=== PATIENT | male | born 1945 | race Caucasian/White ===

== ENCOUNTER → 2019-09-14 | Outpatient (CLI) | payer MEDICARE ==
[~2019-09-14] MED LIST: AEC81 PO; AMLO1CAP6 PO; GLUC1CAP36 PO; HYDR12.54 PO; LEVO75TA4 PO; MULT-1258 PO; OMEGA 3 PO
== END | disposition home or self-care (01) ==
LOC: SHCH 12:30
PROVIDERS: ATTEND Internal Medicine Cardiovascular Disease
DX: I49.5 Sick sinus syndrome (principal); R55 Syncope and collapse
CPT/HCPCS: 93306; 93356

== ENCOUNTER 2019-10-07 05:51 | Day surgery (SDC) | payer MEDICARE ==
[2019-10-05 09:37] LABS: BASOPHILS % (AUTO) 0.5 % (0.0-5.0); EOSINOPHILS % (AUTO) 2.3 % (0.0-8.0); HEMATOCRIT 43.4 % (42-54); LYMPHOCYTES % (AUTO) 31.9 % (21.0-51.0); MEAN CORPUSCULAR HGB CONC 33.4 g/dL (32.0-36.0); MEAN CORPUSCULAR VOLUME 92.9 fL (79-99); MONOCYTES % (AUTO) 10.4 % (3.0-13.0); NEUTROPHILS % (AUTO) 54.6 % (40.0-77.0); PLATELET COUNT (AUTO) 275 K/uL (130-400); RED BLOOD CELL COUNT(AUTO) 4.67 MIL/uL (4.50-6.20); RED CELL DISTRIBUTION WIDTH 12.7 % (11.0-15.5); WHITE BLOOD COUNT (AUTO) 6.2 K/uL (4.8-10.8)
[2019-10-05 09:49] LABS: CREATININE 1.1 mg/dL (0.5-1.5); POTASSIUM 4.2 mmol/L (3.5-5.1)
[2019-10-05 09:52] LABS: INR 0.92 (0.85-1.15); PARTIAL THROMBOPLASTIN TIME 27.8 SEC (26.3-35.5)
[2019-10-05 14:40] VITALS: BP 186/95
[2019-10-07] VITALS (10 sets, daily range): BP systolic 142–179; BP diastolic 74–96
[~2019-10-07] VITALS: Ht 180.3 cm; Wt 91.6 kg
[~2019-10-07 05:51] MED LIST changes: -AEC81 PO; +BUPR100T13 PO; +GABA300C PO; +GABA600T PO; +GLUC15006 PO; -GLUC1CAP36 PO; -HYDR12.54 PO; +MAGNESIUM CITRATE PO; -MULT-1258 PO; -OMEGA 3 PO; +OXYB15TA19 PO; +RIVA3CAP17 PO; +ROTI1PAT10 TD; +SODIUM CHLORIDE 0.9% 1000ML 1,000 ML IV SCH; +VITA1TAB22 PO
[2019-10-07] MEDS ORDERED: CEFAZOLIN SODIUM 1 GM VIAL IVP SCH (06:00)
[2019-10-07] MEDS ORDERED: MIDAZOLAM HCL 1 MG/ML 2ML VIAL ONE ×3 (07:20→08:22)
[2019-10-07] MEDS ORDERED: BUPIVACAINE/PF 0.25% 30ML VIAL IJ ONE (07:20)
[2019-10-07] MEDS ORDERED: CEFAZOLIN SODIUM 1 GM VIAL ONE (07:20)
[2019-10-07] MEDS ORDERED: LIDOCAINE HCL 1% MDV 50ML VIAL ONE (07:21)
[2019-10-07] MEDS ORDERED: MEPERIDINE-PF 25 MG/ML SYG ONE ×3 (07:21→08:22)
--- NOTE | 2019-10-07 09:15 | NUR ---
Pt received Pt received by LIBIA Ramirez via bed from cath lab tech. Pt awake but drowsy. Has 4x4 with opsite dressing to left upper chest area with sling to left arm. No bleeding no hematoma noted. Denies any pain; states feels sleepy. O2 sats fluctuating from 91-95%; applied o2 via nc at 3L/min. O2 sats sustaining at 96-97%. No s/s of distress noted. Spoke to and informed her of pt's arrival to dept. Pt resting comfortably at this time.
--- NOTE | 2019-10-07 15:30 | NUR ---
X-ray X-ray tech here to take portable chest xray as per order. Image was then sent to Dr. Roberts and gave approval for pt to go home. Dressing remains dry and intact with no bleeding, no drainage. Discharge instructions were given to pt and to over the phone. All questions answered and concerns addressed.
== END 2019-10-07 16:27 | disposition home or self-care (01) ==
LOC: DAH 05:51
PROVIDERS: ATTEND Internal Medicine Cardiovascular Disease
DX: I49.5 Sick sinus syndrome (principal); I45.10 Unspecified right bundle-branch block; Z79.01 Long term (current) use of anticoagulants; Z98.52 Vasectomy status; Z90.49 Acquired absence of other specified parts of digestive tract; Z98.890 Other specified postprocedural states; Z90.89 Acquired absence of other organs; Z79.899 Other long term (current) drug therapy; Z79.890 Hormone replacement therapy; Z81.8 Family history of other mental and behavioral disorders; Z82.49 Family history of ischemic heart disease and other diseases of the circulatory system; Z88.8 Allergy status to other drugs, medicaments and biological substances; Z91.018 Allergy to other foods
CPT/HCPCS: 33208; 36415; 71045; 80048; 85025; 85610; 85730; 93005; A4215; A4216; A4221; A4222; A4223 ×3; A4606; A4615; A4663; A6402; C1785; C1898 ×2; J0690; J2175 ×3; J2250 ×3; J3490 ×2; J7030 ×2; 99156; 99157

== ENCOUNTER → 2019-11-13 | Outpatient (CLI) | payer MEDICARE ==
[~2019-11-13] MED LIST changes: -SODIUM CHLORIDE 0.9% 1000ML 1,000 ML IV SCH
== END | disposition home or self-care (01) ==
LOC: RAH 09:45
PROVIDERS: ATTEND Family Medicine
DX: R60.0 Localized edema (principal); M47.26 Other spondylosis with radiculopathy, lumbar region; Z87.891 Personal history of nicotine dependence
CPT/HCPCS: 76775; 93925

== ENCOUNTER → 2020-09-14 | Outpatient (CLI) | payer MEDICARE | END | disposition home or self-care (01) | LOC: RAH 08:25 | PROVIDERS: ATTEND Internal Medicine Cardiovascular Disease | DX: I11.9 Hypertensive heart disease without heart failure (principal); I49.5 Sick sinus syndrome; R55 Syncope and collapse | CPT/HCPCS: 93306; 93356 ==

== ENCOUNTER → 2020-09-19 | Outpatient (CLI) | payer MEDICARE | END | disposition home or self-care (01) | LOC: SHCH 10:08 | PROVIDERS: ATTEND Internal Medicine Cardiovascular Disease | DX: I87.2 Venous insufficiency (chronic) (peripheral) (principal) | CPT/HCPCS: 93970 ==

== ENCOUNTER → 2021-12-23 | Outpatient (CLI) | payer MEDICARE | END | disposition home or self-care (01) | LOC: SHCH 08:31 | PROVIDERS: ATTEND Internal Medicine Cardiovascular Disease | DX: I87.2 Venous insufficiency (chronic) (peripheral) (principal) | CPT/HCPCS: 93970 ==

== ENCOUNTER → 2022-01-24 | Outpatient (CLI) | payer MEDICARE ==
[2022-01-24 12:57] LABS: ALBUMIN 3.6 g/dL (3.5-5.0); CREATININE 1.2 mg/dL (0.5-1.5); POTASSIUM 3.9 mmol/L (3.5-5.1); TOTAL PROTEIN, SERUM 6.9 g/dL (6.0-8.3)
== END | disposition home or self-care (01) ==
LOC: LAB 11:38
PROVIDERS: ATTEND Internal Medicine Cardiovascular Disease
DX: R60.0 Localized edema (principal)
CPT/HCPCS: 36415; 80053; 83880